=== PATIENT | male | born 1985 | race Caucasian/White ===

== ENCOUNTER 2020-10-01 15:04 | Emergency (ER) | payer MEDICAID, OTHER ==
[2020-10-01] MEDS ORDERED: SODIUM CHLORIDE 0.9% 1,000 ML IV STA (15:55)
[2020-10-01] MEDS ORDERED: KETOROLAC 30 MG/ML VIAL IVP STA (15:55)
[2020-10-01 15:58] LABS: GLUCOSE, URINE (UA) NEGATIVE (NEGATIVE); KETONES,URINE (UA) 15 mg/dL (NEGATIVE); LEUKOCYTE ESTERASE, URINE NEGATIVE (NEGATIVE); NITRITE,URINE NEGATIVE (NEGATIVE); OCCULT BLOOD,URINE LARGE (NEGATIVE); PROTEIN,URINE 30 mg/dL (NEGATIVE); UROBILINOGEN,URINE 0.2 (NORMAL) E.U./dL (NORMAL)
[2020-10-01 16:08] LABS: BILIRUBIN,URINE NEGATIVE (NEGATIVE); CLARITY,URINE CLEAR (CLEAR); ICTOTEST,URINE NEGATIVE
[2020-10-01 16:12] LABS: BACTERIA,URINE None Seen /HPF (None Seen); CRYSTALS,URINE 6-10 Calcium Oxalate /LPF; MUCUS,URINE Marked Strands; RBC,URINE TNTC /HPF (0-5); SQUAMOUS EPITHELIAL CELL,UR NONE SEEN (<= Few)
[2020-10-01 16:21] LABS: BASOPHILS # (AUTO) 0.1 10^3/uL (0.0-0.1); BASOPHILS % (AUTO) 0.6 %; EOSINOPHILS # (AUTO) 0.1 10^3/uL (0.0-0.7); EOSINOPHILS % (AUTO) 0.4 %; HGB - HEMOGLOBIN 15.9 g/dL (14.0-18.0); LYMPHOCYTES # (AUTO) 1.2 10^3/uL (1.5-3.5); MEAN CORPUSCULAR HEMOGLOBIN 31.1 pg (27.0-31.0); MEAN CORPUSCULAR HGB CONC 34.7 g/dL (32.0-36.0); MEAN CORPUSCULAR VOLUME 89.6 fL (80.0-94.0); MONOCYTES # (AUTO) 0.7 10^3/uL (0.0-1.0); MONOCYTES % (AUTO) 6.2 %; NEUTROPHILS # (AUTO) 9.8 10^3/uL (1.5-6.6); NEUTROPHILS % (AUTO) 82.3 %; PLT - PLATELET COUNT 338 10^3/uL (130-450); RED BLOOD COUNT 5.11 10^6/uL (4.70-6.10); RED CELL DISTRIBUTION WIDTH 12.1 % (12.0-15.0); WHITE BLOOD COUNT 11.9 x10^3/uL (4.8-10.8)
[2020-10-01 16:32] LABS: ALBUMIN 4.5 g/dL (3.2-5.5); ALBUMIN/GLOBULIN RATIO 1.6 (1.0-2.2); BILIRUBIN,TOTAL 1.3 mg/dL (0.2-1.0); CALCIUM 9.5 mg/dL (8.5-10.3); TOTAL PROTEIN 7.4 g/dL (6.7-8.2)
--- NOTE | 2020-10-01 16:50 | ED Physician Documentation ---
PD HPI ABD PAIN - Stated complaint Stated Complaint: LEFT FLANK PX - Chief complaint Chief Complaint: Abd Pain - History obtained from History obtained from: Patient - History of Present Illness Timing - onset: How many weeks ago (3) Timing - duration: Weeks (3) Timing - details: Abrupt onset, Still present, Waxing and waning Quality: Sharp, Pain Location: LUQ Radiation: Left flank Improved by: Other (nothing) Worsened by: Other (nothing) Associated symptoms: No: Fever, Nausea, Vomiting, Diarrhea, Constipation Similar symptoms before: Diagnosis (kidney stone) Recently seen: Not recently seen - Additional information Additional information: 35 y/o male with a history of kidney stone has developed pain in the left flank radiating to the front about 3 weeks ago. He has 5-6/10 pain and no modifying factors. Review of Systems Constitutional: denies: Fever Ears: denies: Ear pain Nose: denies: Congestion Throat: denies: Sore throat Cardiac: denies: Chest pain / pressure Respiratory: denies: Dyspnea, Cough GI: reports: Abdominal Pain. denies: Vomiting, Diarrhea : denies: Dysuria, Frequency PD PAST MEDICAL HISTORY - Past Medical History Past Medical History: Yes Cardiovascular: High cholesterol - Past Surgical History Past Surgical History: Yes General: Appendectomy, Other - Present Medications Home Medications: Ambulatory Orders Medication Instructions Recorded Confirmed Simvastatin 20 mg PO 08/03/14 Hydrocodone/Acetaminophen [[place] 1 - 2 each PO Q6HR PRN #14 tablet 10/01/20 5-325 Tablet] - Allergies Allergies/Adverse Reactions: Allergies Allergy/AdvReac Type Severity Reaction Status Date / Time No Known Drug Allergies Allergy Verified 10/01/20 15:16 - Social History Does the pt smoke?: No Smoking Status: Never smoker Does the pt drink ETOH?: Yes ETOH Use: Wine, Beer Does the pt have substance abuse?: No Substance Use and Type: Marijuana - Immunizations Immunizations are current?: Yes - POLST Patient has POLST: No PD ED PE NORMAL - Vitals Vital signs reviewed: Yes (hypertensive ) - General General: Alert and oriented X 3, No acute distress, Well developed/nourished - HEENT HEENT: Atraumatic, PERRL, EOMI - Neck Neck: Supple, no meningeal sign, No bony TTP - Cardiac Cardiac: RRR, No murmur - Respiratory Respiratory: No respiratory distress, Clear bilaterally - Abdomen Abdomen: Normal bowel sounds, Soft, Non tender, Non distended, No organomegaly - Back Back: No CVA TTP, No spinal TTP - Derm Derm: Normal color, Warm and dry, No rash - Extremities Extremities: No deformity, No edema - Neuro Neuro: Alert and oriented X 3, it administrator 2-12 intact, No motor deficit, No sensory deficit, Normal speech Eye Opening: Spontaneous Motor: Obeys Commands Verbal: Oriented GCS Score: 15 - Psych Psych: Normal mood, Normal affect Results - Vitals Vitals: Vital Signs - 24 hr 10/01/20 10/01/20 15:13 17:55 Temperature 36.4 C L 37.0 C Heart Rate 96 71 Respiratory 18 18 Rate Blood Pressure 148/94 H 108/72 O2 Saturation 100 99 Oxygen O2 Source Room air - Labs Labs: Laboratory Tests 10/01/20 10/01/20 10/01/20 15:15 16:10 16:10 WBC 11.9 H RBC 5.11 Hgb 15.9 Hct 45.8 MCV 89.6 MCH 31.1 H MCHC 34.7 RDW 12.1 Plt Count 338 MPV 9.0 Neut # (Auto) 9.8 H Lymph # (Auto) 1.2 L [place] # (Auto) 0.7 Eos # (Auto) 0.1 Baso # (Auto) 0.1 Absolute Nucleated RBC 0.00 Nucleated RBC % 0.0 Sodium 141 Potassium 3.6 Chloride 98 L Carbon Dioxide 24 Anion Gap 19.0 H BUN 12 Creatinine 1.0 Estimated GFR (MDRD) 86 L Glucose 102 H Calcium 9.5 Total Bilirubin 1.3 H AST 20 ALT 18 Alkaline Phosphatase 64 Total Protein 7.4 Albumin 4.5 Globulin 2.9 Albumin/Globulin Ratio 1.6 Lipase 44 Urine Color YELLOW Urine Clarity CLEAR Urine pH 6.0 Ur Specific Watson >=1.030 H Urine Protein 30 H Urine Glucose (UA) NEGATIVE Urine Ketones 15 H Urine Occult Blood LARGE H Urine Nitrite NEGATIVE Urine Bilirubin NEGATIVE Urine Urobilinogen 0.2 (NORMAL) Ur Leukocyte Esterase NEGATIVE Urine RBC TNTC H Urine WBC 0-3 Ur Squamous Epith Cells NONE SEEN Urine Crystals 6-10 Calcium Oxalate Urine Bacteria None Seen Urine Mucus Marked Strands Ur Microscopic Review INDICATED Urine Culture Comments NOT INDICATED - Rads (name of study) CT Radiology: Prelim report reviewed (Impression there is a partially obstructive 2 mm calculus in the middle third of the left ureter in addition to 2 additional small calculi within the collecting system on the left each of which is nonobstructive. No right-sided urinary tract obstruction or calculus is foun d.), EMP read indepedently, See rad report Procedures - Bedside sono Bedside sono by EMP: With use of bedside ultrasound the left kidney is imaged it is sonographically nontender and there is evidence of hydronephrosis. PD MEDICAL DECISION MAKING - ED course Complexity details: reviewed old records, reviewed results, re-evaluated patient, considered differential, d/w patient, d/w family ED course: 35-year-old male with a history of renal lithiasis has again symptoms and findings consistent with acute ureterolithiasis on the left side. He has small stones 2 mm. He has a number of other stones in the left kidney. I have shared this information with the patient and his . He has improvement in his pain with Toradol and is administered a liter of saline. He will follow-up with his primary in [place] Departure - Departure Disposition: 01 Home, Self Care Clinical Impression: Ureterolithiasis Condition: Stable Instructions: ED Stone Renal W Colic Follow-Up: Your, Doctor [Other] Prescriptions: Hydrocodone/Acetaminophen [[place] 5-325 Tablet] 1 - 2 each PO Q6HR PRN #14 tablet PRN Reason: Pain Discharge Date/Time: 10/01/20 18:18
--- NOTE | 2020-10-01 17:00 | CT Report ---
PROCEDURE: Abdomen/Pelvis WO INDICATIONS: L flank pain TECHNIQUE: Noncontrast 5 mm thick sections acquired from the diaphragms to the symphysis. 5 mm coronal and sagi ttal reformats were then performed. For radiation dose reduction, the following was used: automated exposure control, adjustment of mA and/or kV according to patient size. COMPARISON: None. FINDINGS: Image quality: Excellent. ABDOMEN: Lung bases: Lung bases are clear. Heart size is normal. Solid organs: Liver and spleen are normal in size. Gallbladder Pancreas is normal in contours. No adrenal nodules. Kidneys are normal in size, without right-sided hydronephrosis or nephrolithia sis. There is mild left-sided hydronephrosis and at the middle third of the left ureter there is a c alculus measuring 2 mm in diameter seen on CT series 3 image 42. A punctate calculus is noted within the mildly distended left collecting system inferiorly and also superiorly. Peritoneum and bowel: Unenhanced bowel loops demonstrate normal wall thickness and caliber. No free fluid or air. Nodes and vessels: No retroperitoneal or mesenteric adenopathy by size criteria. Aorta and inferior vena cava are normal in caliber. Miscellaneous: No ventral hernias. PELVIS: Genitourinary: Bladder wall thickness is normal. Miscellaneous: No inguinal hernias or adenopathy. Bones: No suspicious bony lesions. No vertebral body compression fractures. IMPRESSION: There is a partially obstructive 2 mm calculus in the middle third of the left ureter in addition to 2 additional small calculi within the collecting system on the left each of which is nonobstructive. No right-sided urinary tract obstruction or calculus is found. Reviewed by: Leon Napoles MD on 10/01/2020 4:59 PM PST Approved by: Leon Napoles MD on 10/01/2020 4:59 PM PST Station ID: [id number]
[2020-10-01 17:55] VITALS: BP 108/72
== END 2020-10-01 18:18 | disposition home or self-care (01) ==
LOC: ED 15:04
DX: N13.2 Hydronephrosis with renal and ureteral calculous obstruction (principal)
CPT/HCPCS: 36415; 74176; 80053; 81001; 81003; 83690; 85025; 87086; 96374; 99284

== ENCOUNTER 2023-08-26 10:39 | Emergency (ER) | payer OTHER ==
--- NOTE | 2023-08-26 10:58 | ED Physician Documentation ---
PD HPI ABD PAIN - Stated complaint Stated Complaint: RT FLANK PX - Chief complaint Chief Complaint: Abd Pain - History obtained from History obtained from: Patient - History of Present Illness Timing - onset: How many hours ago (1-2), Today Timing - duration: Days (1-2) Timing - details: Abrupt onset, Still present Quality: Aching, Sharp, Pain Location: RLQ Radiation: Right flank Improved by: No: Laying still, Position Worsened by: No: Moving, Breathing, Position, Palpation Associated symptoms: Nausea, Vomiting, Loss of appetite. No: Fever, Diarrhea, Dysuria Similar symptoms before: Diagnosis (feels like prior kidney stones, he has had 6 prior ones, all passed without inteervention.) Recently seen: Emergency Dept (seen about 2 weeks abo for lower abd pain and Dx with divertiliciits presumed on CT. No ureteral stones then and has diverticula. No noted -itis on CT. treated with meds and abx and improved. The CT at that time showed few stones in kidney on right, largest about 3-4 mm.) Review of Systems Constitutional: denies: Fever, Chills Nose: denies: Rhinorrhea / runny nose, Congestion Throat: denies: Sore throat Respiratory: denies: Cough : denies: Dysuria, Frequency, Hematuria PD PAST MEDICAL HISTORY - Past Medical History Cardiovascular: High cholesterol GI: None : Kidney stones - Past Surgical History Past Surgical History: Yes General: Appendectomy, Other - Present Medications Home Medications: Ambulatory Orders Medication Instructions Recorded Confirmed Naproxen 500 mg PO BID #20 tab 08/26/23 Ondansetron Odt [Zofran] 4 mg TL Q6H PRN #10 tablet 08/26/23 Oxycodone HCl/Acetaminophen 1 each PO Q6H PRN #20 tablet 08/26/23 [Percocet 5-325 mg Tablet] - Allergies Allergies/Adverse Reactions: Allergies Allergy/AdvReac Type Severity Reaction Status Date / Time Penicillins Allergy Hives Verified 08/26/23 10:53 - Social History Does the pt smoke?: No Smoking Status: Never smoker Does the pt drink ETOH?: Yes Does the pt have substance abuse?: No - Immunizations Immunizations are current?: Yes - POLST Patient has POLST: No PD ED PE NORMAL - Vitals Vital signs reviewed: Yes - General General: Alert and oriented X 3, Well developed/nourished, Other (appears very uncomfortable in pain, writhing on cart. pain not worse with movement.) - Cardiac Cardiac: RRR, No murmur - Respiratory Respiratory: Clear bilaterally - Abdomen Abdomen: Soft, Non tender - Back Back: No spinal TTP, Other - Derm Derm: Normal color, Warm and dry - Neuro Neuro: Alert and oriented X 3, No motor deficit, Normal speech Results - Vitals Vitals: Vital Signs - 24 hr 08/26/23 08/26/23 08/26/23 10:50 12:07 12:43 Temperature 36.4 C L Heart Rate 83 76 64 Respiratory 16 18 18 Rate Blood Pressure 112/88 H 105/60 O2 Saturation 97 96 97 Oxygen O2 Source Room air - Labs Labs: Laboratory Tests 08/26/23 08/26/23 11:00 11:00 WBC 7.2 RBC 5.01 Hgb 15.5 Hct 45.2 MCV 90.2 MCH 30.9 MCHC 34.3 RDW 12.3 Plt Count 384 MPV 9.2 Neut # (Auto) 3.4 Lymph # (Auto) 3.0 [place] # (Auto) 0.7 Eos # (Auto) 0.0 Baso # (Auto) 0.1 Absolute Nucleated RBC 0.00 Nucleated RBC % 0.0 Sodium 140 Potassium 3.6 Chloride 103 Carbon Dioxide 20 L Anion Gap 17.0 H BUN 9 Creatinine 1.0 Estimated GFR (MDRD) 85 L Glucose 157 H Calcium 9.8 Total Bilirubin 0.7 AST 22 ALT 28 Alkaline Phosphatase 49 Total Protein 7.3 Albumin 4.7 Globulin 2.6 Albumin/Globulin Ratio 1.8 Lipase 45 PD Medical Decision Making - ED course Complexity details: reviewed old records (I looked at his recent CT abd for different abd pain. He had a few small stones in right kidney at that time, largest 3-4 mm, so would not be passing anything larger at this point. ), re- evaluated patient (pain improved with meds IV of toradol, zofran and dilaudid. He remaiend comfortable enough and idid not need redosing of meds. ), considered differential (pain chracter c/w kidney stone, and he has had 6 prior ones feeling like this. Can empirically treat as kidney stone. ), d/w patient Departure - Departure Disposition: 01 Home, Self Care Clinical Impression: Acute right flank pain, Ureterolithiasis Condition: Stable Record reviewed to determine appropriate education?: Yes Instructions: ED Stone Renal W Colic Follow-Up: Sheila Blue PA [Primary Care Provider] - Derick Grover MD [Provider Admit Priv/Credential] - Prescriptions: Naproxen 500 mg PO BID #20 tab Oxycodone HCl/Acetaminophen [Percocet 5-325 mg Tablet] 1 each PO Q6H PRN #20 tablet PRN Reason: pain Ondansetron Odt [Zofran] 4 mg TL Q6H PRN #10 tablet PRN Reason: Nausea / Vomiting Comments: Regular hydration. Use a combination of some anti-inflammatories and pain medicine. Naproxen 500 mg twice daily with food for the next several days to a week. Ondansetron if needed for nausea. To this add Tylenol 500 to 650 mg 4 times daily if needed for pain or Percocet if needed for worse pain. Your CT scan from recently had shown at most stone of 3 to 4 mm size in the kidney. It would not really been able to grow much bigger than that in the last week and a half so presume it still a small to medium size stone that is trying to past. I did not feel that we needed to reimage today. Return if worsening symptoms. Follow-up with urology if it lingers more than several days or more. I sent your prescriptions to [facility]. My narcotic instructionsI am prescribing a short course of narcotic pain medication for you. These are potentially dangerous and addictive medications that should be used carefully. These medications may constipate you. Take an [id number] stool softener such as docusate twice daily with plenty of water while taking these medications. If you go 24 hours without a bowel movement, take [id number] MiraLAX, per package instructions. Do not drink or drive while taking these medications. If you received narcotic or sedating medications while in the emergency department do not drive for 24 hours. Store this medication in a safe, secure place and out of reach of children. It is a violation of federal law to give or sell this medication to another person or to use in a manner other than prescribed. The ED will not refill narcotic prescriptions, including prescriptions lost or stolen. You can dispose of unwanted medications at the [facility]'s office or at several pharmacies such as [facility]. Forms: PCP List Discharge Date/Time: 08/26/23 13:10
[2023-08-26 11:06] LABS: BASOPHILS # (AUTO) 0.1 10^3/uL (0.0-0.1); EOSINOPHILS % (AUTO) 0.4 %; HCT - HEMATOCRIT 45.2 % (42.0-52.0); HGB - HEMOGLOBIN 15.5 g/dL (14.0-18.0); LYMPHOCYTES % (AUTO) 41.9 %; MEAN CORPUSCULAR HEMOGLOBIN 30.9 pg (27.0-31.0); MEAN CORPUSCULAR HGB CONC 34.3 g/dL (32.0-36.0); MEAN CORPUSCULAR VOLUME 90.2 fL (80.0-94.0); MEAN PLATELET VOLUME 9.2 fL (7.4-11.4); MONOCYTES # (AUTO) 0.7 10^3/uL (0.0-1.0); MONOCYTES % (AUTO) 9.7 %; NEUTROPHILS # (AUTO) 3.4 10^3/uL (1.5-6.6); NEUTROPHILS % (AUTO) 46.9 %; PLT - PLATELET COUNT 384 10^3/uL (130-450); RED BLOOD COUNT 5.01 10^6/uL (4.70-6.10); RED CELL DISTRIBUTION WIDTH 12.3 % (12.0-15.0); WHITE BLOOD COUNT 7.2 x10^3/uL (4.8-10.8)
[2023-08-26] MEDS ORDERED: KETOROLAC 15 MG/ML VIAL IVP STA (11:07)
[2023-08-26] MEDS ORDERED: HYDROmorphone 1 MG/ML CARPUJECT IVP STA (11:07)
[2023-08-26] MEDS ORDERED: ONDANSETRON 4 MG/2 ML VIAL IVP STA (11:07)
[2023-08-26 11:19] LABS: ALBUMIN 4.7 g/dL (3.2-5.5)
[2023-08-26 11:32] LABS: ALBUMIN/GLOBULIN RATIO 1.8 (1.0-2.2); BILIRUBIN,TOTAL 0.7 mg/dL (0.2-1.0); CALCIUM 9.8 mg/dL (8.5-10.3); POTASSIUM 3.6 mmol/L (3.5-4.5); TOTAL PROTEIN 7.3 g/dL (6.4-8.9)
[2023-08-26 12:47] VITALS: BP 105/60; O2SAT 97
== END 2023-08-26 13:10 | disposition home or self-care (01) ==
LOC: ED 10:39
DX: N20.1 Calculus of ureter (principal); Z87.442 Personal history of urinary calculi
CPT/HCPCS: 36415; 80053; 83690; 85025; 96374; 96375; 99283; J1170

== ENCOUNTER 2023-09-09 09:42 | Outpatient (CLI) | payer OTHER ==
--- NOTE | 2023-09-10 10:19 | Ultrasound Report ---
PROCEDURE: Abdomen Limited INDICATIONS: SLY COLORED STOOLS TECHNIQUE: Real-time focused scanning was performed of the abdomen, with image documentation. COMPARISONS: CT abdomen pelvis 08/16/2023 FINDINGS: Liver: Liver is normal in size and homogeneous in echotexture. Gallbladder: Unremarkable. Biliary ducts: Intrahepatic bile ducts are non-dilated. Extrahepatic bile duct caliber measures 3.5 mm. Normal is 6-7 mm or less in diameter, or 10 mm or less post-cholecystectomy. Pancreas: Visualized portions of the pancreas are sonographically normal. Right kidney: Normal in size and echotexture. Right kidney measures 11.3 cm long. No hydronephrosis or nephrolithiasis. No solid masses. No complex renal cystic lesions which require follow-up. Aorta: Visualized aorta is normal in caliber at less than 3 cm. IVC: Intrahepatic inferior vena cava is patent. Miscellaneous: No free abdominal fluid. IMPRESSION: Unremarkable abdominal ultrasound. Reviewed by: Martha Bravo MD on 09/10/2023 10:17 AM PDT Approved by: Martha Bravo MD on 09/10/2023 10:17 AM PDT Station ID: [id number]
== END 2023-09-09 09:43 | disposition home or self-care (01) ==
LOC: DI 09:42
PROVIDERS: ATTEND Physician Assistant Medical
DX: R19.5 Other fecal abnormalities (principal)

== ENCOUNTER 2023-10-07 08:00 | Outpatient (CLI) | payer OTHER | END 2023-10-07 23:59 | disposition home or self-care (01) | LOC: LAB 08:00 | PROVIDERS: ATTEND Physician Assistant Medical | DX: N20.0 Calculus of kidney (principal) | CPT/HCPCS: 82365 ==

== ENCOUNTER 2023-11-29 11:33 | Day surgery (SDC) | payer OTHER ==
[2023-11-29] MEDS ORDERED: LACTATED RINGERS 1,000 ML IV ONE ×2 (11:38→13:49)
[2023-11-29] MEDS ORDERED: MIDAZOLAM 2 MG/2 ML VIAL ONE (12:41)
[2023-11-29] MEDS ORDERED: PROPOFOL 200 MG/20 ML VIAL IVP ONE (12:42)
--- NOTE | 2023-11-29 12:55 | ANESTHESIA ---
Pre-Anesthesia VS, & Labs - Diagnosis family hx colon ca, diverticulitis - Procedure colonoscopy Vital Signs: Temp Pulse Resp BP Pulse Ox O2 Flow Rate 36.4 C L 64 18 105/79 100 11/29/23 11:42 11/29/23 11:42 11/29/23 11:42 11/29/23 11:42 11/29/23 11:42 Height: 5 ft 9 in Weight (kg): 61.4 kg Body Mass Index: 20.0 BMI Classification: Normal - NPO >8 hours Last Fluid Intake: am prep - Lab Results Lab results reviewed: Yes Home Medications and Allergies Allergies/Adverse Reactions: Allergies Allergy/AdvReac Type Severity Reaction Status Date / Time Penicillins Allergy Hives Verified 08/26/23 10:53 Anes History & Medical History - Anesthetic History Anesthesia Complications: reports: No previous complications Family history of Anesthesia Complications: Denies Family history of Malignant Hyperthermia: Denies - Medical History Cardiovascular: reports: None Pulmonary: reports: None Gastrointestinal: reports: None, Diverticulitis Urinary: reports: Kidney stones Musculoskeletal: reports: None Endocrine/Autoimmune: reports: None Skin: reports: None Smoking Status: Never smoker - Surgical History General: reports: Appendectomy, Colonoscopy, Other Exam General: Alert, Oriented x3, Cooperative Dental: WNL Mouth Openin Fingerbreadth Neck Mobility: Normal Mallampati classification: II Thyromental Distance: 4-6 cm Respiratory: Lungs clear, Normal breath sounds, No respiratory distress Cardiovascular: Regular rate Neurological: Normal speech Mental/Cognitive Status: Alert/Oriented X3, Normal for patient Cognitive Status: Within normal limits Plan Anesthesia Type: Total IV Consent for Procedure(s) Verified and Reviewed: Yes Code Status: Attempt Resuscitation ASA classification: 2-Mild systemic disease Is this case an emergency?: No
[2023-11-29 14:10] VITALS: O2SAT 100
--- NOTE | 2023-11-29 14:16 | ANESTHESIA POST OP EVALUATION ---
Anesthesia Post Eval - Post Anesthesia Eval Vitals: Last Vital Signs Temp 36.2 C L 11/29/23 14:00 Pulse 56 L 11/29/23 14:00 Resp 16 11/29/23 14:00 BP 98/56 L 11/29/23 14:00 Pulse Ox 100 11/29/23 14:00 O2 Flow Rate CV Function Including HR & BP: Stable Pain Control: Satisfactory Nausea & Vomiting: Negative Mental Status: Baseline Respiratory Status: Airway Patent Hydration Status: Satisfactory Anesthesia Complications: None
[2023-11-29 14:30] VITALS: BP 99/57
== END 2023-11-29 11:34 | disposition home or self-care (01) ==
LOC: SDS 11:33
PROVIDERS: ATTEND Surgery
PROC: 0DBE8ZX Excision of Large Intestine, Via Natural or Artificial Opening Endoscopic, Diagnostic (ICD-10-PCS; principal; 2023-11-29 12:45)
DX: K57.30 Diverticulosis of large intestine without perforation or abscess without bleeding (principal); R19.4 Change in bowel habit; R63.4 Abnormal weight loss; Z87.19 Personal history of other diseases of the digestive system; Z80.0 Family history of malignant neoplasm of digestive organs; Z68.20 Body mass index [BMI] 20.0-20.9, adult
CPT/HCPCS: 45380; J7120

== ENCOUNTER 2024-07-30 09:09 | Emergency (ER) | payer OTHER ==
[2024-07-30 09:38] VITALS: O2SAT 100
[2024-07-30 09:48] LABS: BASOPHILS # (AUTO) 0.1 10^3/uL (0.0-0.1); BASOPHILS % (AUTO) 0.8 %; EOSINOPHILS # (AUTO) 0.1 10^3/uL (0.0-0.7); EOSINOPHILS % (AUTO) 0.8 %; HCT - HEMATOCRIT 42.2 % (42.0-52.0); HGB - HEMOGLOBIN 13.9 g/dL (14.0-18.0); LYMPHOCYTES # (AUTO) 1.4 10^3/uL (1.5-3.5); LYMPHOCYTES % (AUTO) 17.8 %; MEAN CORPUSCULAR HEMOGLOBIN 30.5 pg (27.0-31.0); MEAN CORPUSCULAR HGB CONC 32.9 g/dL (32.0-36.0); MEAN CORPUSCULAR VOLUME 92.7 fL (80.0-94.0); MEAN PLATELET VOLUME 9.2 fL (7.4-11.4); MONOCYTES # (AUTO) 0.6 10^3/uL (0.0-1.0); MONOCYTES % (AUTO) 7.4 %; NEUTROPHILS # (AUTO) 5.5 10^3/uL (1.5-6.6); NEUTROPHILS % (AUTO) 72.8 %; PLT - PLATELET COUNT 283 10^3/uL (130-450); RED BLOOD COUNT 4.55 10^6/uL (4.70-6.10); RED CELL DISTRIBUTION WIDTH 12.4 % (12.0-15.0); WHITE BLOOD COUNT 7.6 x10^3/uL (4.8-10.8)
--- NOTE | 2024-07-30 10:03 | ED Physician Documentation ---
PD HPI ABD PAIN - Stated complaint Stated Complaint: STOMACH PX, CONSTIPATION - Chief complaint Chief Complaint: Abd Pain - History obtained from History obtained from: Patient - Additional information Additional information: 38-year-old gentleman with history of diverticulitis and remote appendectomy and hernia repair is had lower abdominal pain with small thin stools and one was potentially bloody but it was after eating tomato soup. Been going on for 9 days. He said chills and sweats without measured fevers. PD PAST MEDICAL HISTORY - Past Medical History Cardiovascular: None Respiratory: None Endocrine/Autoimmune: None GI: Diverticulitis : Kidney stones HEENT: None Psych: Anxiety Musculoskeletal: None Derm: None - Past Surgical History Past Surgical History: Yes General: Appendectomy, Colonoscopy, Other - Present Medications Home Medications: Ambulatory Orders Medication Instructions Recorded Confirmed Ciprofloxacin HCl [Cipro] 500 mg PO BID #20 tablet 07/30/24 Ketorolac [Toradol] 10 mg PO Q6H PRN #10 tablet 07/30/24 ONDANSETRON ODT Prepack 2 [ZOFRAN 1 tab PO PRN PRN 07/30/24 07/30/24 ODT] metroNIDAZOLE [Flagyl] 500 mg PO TID 10 Days #30 tablet 07/30/24 - Allergies Allergies/Adverse Reactions: Allergies Allergy/AdvReac Type Severity Reaction Status Date / Time Penicillins Allergy Hives Verified 08/26/23 10:53 - Social History Does the pt smoke?: No Smoking Status: Never smoker Does the pt drink ETOH?: Yes Does the pt have substance abuse?: No - Immunizations Immunizations are current?: Yes - POLST Patient has POLST: No PD ED PE NORMAL - Vitals Vital signs reviewed: Yes - General General: Alert and oriented X 3, No acute distress - Abdomen Abdomen: Other (Hyperactive bowel sounds without appreciable tenderness) - Neuro Neuro: Alert and oriented X 3, Normal speech Eye Opening: Spontaneous Motor: Obeys Commands Verbal: Oriented GCS Score: 15 Results - Vitals Vitals: Vital Signs - 24 hr 07/30/24 09:22 Temperature 36.2 C L Heart Rate 70 Respiratory 18 Rate Blood Pressure 117/59 L O2 Saturation 100 Oxygen O2 Source Room air - Labs Labs: Laboratory Tests 07/30/24 07/30/24 09:42 09:42 WBC 7.6 RBC 4.55 L Hgb 13.9 L Hct 42.2 MCV 92.7 MCH 30.5 MCHC 32.9 RDW 12.4 Plt Count 283 MPV 9.2 Neut # (Auto) 5.5 Lymph # (Auto) 1.4 L [place] # (Auto) 0.6 Eos # (Auto) 0.1 Baso # (Auto) 0.1 Absolute Nucleated RBC 0.00 Nucleated RBC % 0.0 Sodium 139 Potassium 4.1 Chloride 106 Carbon Dioxide 29 Anion Gap 4.0 L BUN 9 Creatinine 0.9 Estimated GFR (MDRD) 95 Glucose 104 Calcium 9.8 Total Bilirubin 0.4 AST 16 ALT 16 Alkaline Phosphatase 48 Total Protein 6.6 Albumin 4.1 Globulin 2.5 Albumin/Globulin Ratio 1.6 Lipase 158 H PD Medical Decision Making - ED course ED course: He presents with abdominal pain and history of diverticulitis and current symptomatology is consistent with prior episodes of same. He is already had his appendix out and he is nontender. As such suspicion for surgical emergency or vascular issue is low. Plan to treat for diverticulitis pending labs and treated here with Toradol. His labs are unremarkable with normal white count. He has borderline elevation of his lipase which does not fit the clinical circumstances with lower abdominal pain. He was feeling better after IV Toradol. He has a listed allergy to penicillin so we will do Cipro and Flagyl given the time course of 9 days already in pain as well as dietary restrictions. I do not think he needs CT scanning at this time but was given close return precautions. Departure - Departure Disposition: 01 Home, Self Care Clinical Impression: Diverticulitis of gastrointestinal tract Condition: Good Record reviewed to determine appropriate education?: Yes Instructions: Diet Low Residue, Diet Clear Liquid Dc, ED Diverticulitis Prescriptions: Ciprofloxacin HCl [Cipro] 500 mg PO BID #20 tablet metroNIDAZOLE [Flagyl] 500 mg PO TID 10 Days #30 tablet Ketorolac [Toradol] 10 mg PO Q6H PRN #10 tablet PRN Reason: pain Comments: I sent your prescriptions electronically to the [facility] in [place]. As discussed, this is most consistent with diverticulitis that is uncomplicated. Return if not better over the next few days, sooner for new or worsening symptoms. For the next 24 hours do the clear liquid diet and for another 24 hours a low residue diet. See attached instruction sheets. Do not drink alcohol while on the antibiotics. Forms: PCP List
[2024-07-30 10:04] LABS: ALBUMIN 4.1 g/dL (3.2-5.5); ALBUMIN/GLOBULIN RATIO 1.6 (1.0-2.2); BILIRUBIN,TOTAL 0.4 mg/dL (0.2-1.0); CALCIUM 9.8 mg/dL (8.5-10.3); CREATININE 0.9 mg/dL (0.6-1.3); POTASSIUM 4.1 mmol/L (3.5-4.5); TOTAL PROTEIN 6.6 g/dL (6.4-8.9)
[2024-07-30] MEDS: KETOROLAC 15 MG/ML VIAL IVP STA (10:12)
[2024-07-30 10:25] LABS: BILIRUBIN,URINE NEGATIVE (NEGATIVE); GLUCOSE, URINE (UA) NEGATIVE (NEGATIVE); KETONES,URINE (UA) NEGATIVE (NEGATIVE); LEUKOCYTE ESTERASE, URINE NEGATIVE (NEGATIVE); NITRITE,URINE NEGATIVE (NEGATIVE); OCCULT BLOOD,URINE NEGATIVE (NEGATIVE); PROTEIN,URINE NEGATIVE (NEGATIVE); UROBILINOGEN,URINE 0.2 (NORMAL) E.U./dL (NORMAL)
[2024-07-30 10:26] LABS: CLARITY,URINE CLEAR (CLEAR)
[2024-07-30 11:04] VITALS: BP 118/78
== END 2024-07-30 10:54 | disposition home or self-care (01) ==
LOC: ED 09:09
DX: K57.92 Diverticulitis of intestine, part unspecified, without perforation or abscess without bleeding (principal)
CPT/HCPCS: 36415; 80053; 81001; 81003; 83690; 85025; 87086; 96374; 99283